=== PATIENT | female | born 1945 | race Caucasian/White ===

== ENCOUNTER 2017-04-27 10:58 | Outpatient (CLI) | payer BC | END 2017-04-27 10:59 | disposition home or self-care (01) | LOC: BICMAMMO 10:58 | PROVIDERS: ATTEND Obstetrics & Gynecology | DX: Z12.31 Encounter for screening mammogram for malignant neoplasm of breast (principal) | CPT/HCPCS: 77063; 77067 ==

== ENCOUNTER 2018-05-04 13:29 | Outpatient (CLI) | payer BC ==
--- NOTE | 2018-05-04 16:21 | MRI ---
MRI CERVICAL SPINE WITHOUT CONTRAST: INDICATIONS: A 73-year-old female with a history of cervical spinal surgery and neck pain with radiation to the [facility] shoulder, for many months. COMPARISON: None. TECHNIQUE: Multiplanar, multisequence MR images were obtained of the cervical spine without IV contrast. The ex amination was ordered as a with and without contrast examination; however, due to the patient's dimin ished GFR and elevated creatinine, no contrast enhanced images were obtained. FINDINGS: There is a subchondral cyst-like abnormality involving the odontoid process, with surrounding periodo ntoid mild low signal intensity T1 and T2 soft tissue prominence. There is a suspected small, bony h emangioma within the right lateral aspect of the T2 dens base. 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 There i s slight anterior translation of C3 on C4. There is slight anterior translation of C7 on T1, which i s likely degenerative. The remaining visualized posterior fossa is unremarkable appearing. At C2-C3, there is moderate facet joint degenerative change and uncovertebral hypertrophy but no appr eciable central canal or neural foraminal narrowing. At C3-C4, there is a broad-based disk osteophyte complex with uncovertebral hypertrophy and severe le ft and moderate right facet joint degenerative change, inducing mild to moderate left neural foramina l narrowing. At C4-C5, there is a broad-based disk osteophyte complex with uncovertebral hypertrophy and facet briseyda nt degenerative change but no appreciable central canal or neural foraminal narrowing. At C5-C6, there is a broad-based disk osteophyte complex causing mild effacement of the subarachnoid space, without definite cord contact. There is uncovertebral hypertrophy with facet joint degenerati ve change, inducing mild right neural foraminal narrowing. At C6-C7, there is no appreciable central canal or neural foraminal narrowing. At C7-T1, there is a broad-based disk osteophyte complex but no appreciable neural foraminal narrowin g. The disk bulge at this level induces mild effacement of the subarachnoid space, but no definite c ord contact. IMPRESSION: 1. Postoperative changes of the cervical spine, consistent with an interbody fusion at C6-C7. 2. 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 3. There is mild central canal narrowing seen at C5-C6 and C7-T1 without definite cord compression. 4. There is mild to moderate left-sided neural foraminal narrowing seen at C3-C4. 5. Subchondral cyst-like abnormalities with surrounding low signal intensity soft tissue prominence of the odontoid process can be seen with entities such as osteoarthrosis of the atlantoaxial joint; h owever, this can also be seen with entities such as calcium pyrophosphate deposition disease. Correl ation with a CT of the cervical spine may be helpful to evaluate for periarticular soft tissue calcif ications. 6. Bony hemangioma within the base of C2. POS: [facility]
== END 2018-05-04 13:30 | disposition home or self-care (01) ==
LOC: SCSMRI 13:29
PROVIDERS: ATTEND Orthopaedic Surgery
DX: M47.812 Spondylosis without myelopathy or radiculopathy, cervical region (principal); M48.02 Spinal stenosis, cervical region; D18.09 Hemangioma of other sites; Z98.890 Other specified postprocedural states; Z98.1 Arthrodesis status
CPT/HCPCS: 72141; 82565

== ENCOUNTER 2018-09-05 13:33 | Outpatient (CLI) | payer BC ==
--- NOTE | 2018-09-05 14:57 | MMO ---
Bilateral MAMMO Bilat Screen [facility]. CLINICAL HISTORY: Patient is 73 years old and is seen for screening. The patient has no family history of breast cancer. The patient has no personal history of cancer. VIEWS: The views performed were: bilateral craniocaudal with tomosynthesis and bilateral mediolateral oblique with tomosynthesis. FILMS COMPARED: The present examination has been compared to prior imaging studies performed at [facility] on 03/26/2014, 04/02/2015, 04/07/2016 and 04/27/2017. MAMMOGRAM FINDINGS: There are scattered fibroglandular densities. There are benign appearing and vascular calcifications seen in both breasts. There are no suspicious masses, suspicious calcifications, or new areas of architectural distortion. IMPRESSION: THERE IS NO MAMMOGRAPHIC EVIDENCE OF MALIGNANCY. A ROUTINE FOLLOW-UP MAMMOGRAM IN 1 YEAR IS RECOMMENDED. THE RESULTS OF THIS EXAM WERE SENT TO THE PATIENT. ACR BI-RADS Category 2 - Benign finding MAMMOGRAPHY NOTE: 1. A negative mammogram report should not delay a biopsy if a dominant of clinically suspicious mass is present. 2. Approximately 10% to 15% of breast cancers are not detected by mammography. 3. Adenosis and dense breasts may obscure an underlying neoplasm. Reported by: ROBY GRIJALVA MD Electonically Signed: [id number]
== END 2018-09-05 13:34 | disposition home or self-care (01) ==
LOC: BICMAMMO 13:33
PROVIDERS: ATTEND Obstetrics & Gynecology
DX: Z12.31 Encounter for screening mammogram for malignant neoplasm of breast (principal)
CPT/HCPCS: 77063; 77067

== ENCOUNTER 2020-10-18 10:56 | Outpatient (CLI) | payer BC | END 2020-10-18 10:57 | disposition home or self-care (01) | LOC: BICMAMMO 10:56 | PROVIDERS: ATTEND Internal Medicine | DX: Z12.31 Encounter for screening mammogram for malignant neoplasm of breast (principal) | CPT/HCPCS: 77063; 77067 ==

== ENCOUNTER 2021-11-04 11:50 | Outpatient (CLI) | payer BC | END 2021-11-04 11:51 | disposition home or self-care (01) | LOC: BICMAMMO 11:50 | PROVIDERS: ATTEND Internal Medicine | DX: Z12.31 Encounter for screening mammogram for malignant neoplasm of breast (principal) | CPT/HCPCS: 77063; 77067 ==

== ENCOUNTER 2023-11-19 13:30 | Outpatient (CLI) | payer MEDICARE | END 2023-11-19 13:31 | disposition home or self-care (01) | LOC: BICMAMMO 13:30 | PROVIDERS: ATTEND Internal Medicine | DX: Z12.31 Encounter for screening mammogram for malignant neoplasm of breast (principal) | CPT/HCPCS: 77063; 77067 ==

== ENCOUNTER 2024-01-24 19:36 | Emergency (ER) | payer MEDICARE ==
[2024-01-24 20:48] LABS: #Basophils 0.03 10x3/uL (0.0-0.2); %Basophils 0.3 % (0.0-1.0); %Eosinophils 1.7 % (0.0-10.0); %Lymphocytes 21.5 % (21.0-51.0); %Monocytes 7.5 % (0.0-10.0); %Neutrophils 68.7 % (42.0-75.0); Hematocrit 35.7 % (36.0-47.0); Hemoglobin 11.8 g/dL (12.0-16.0); Mean Corpuscular HGB CONC 33.1 g/dL (32.0-36.0); Mean Corpuscular Hemoglobin 31.4 pg (27.0-31.0); Mean Corpuscular Volume 94.9 fL (78.0-98.0); Mean Platelet Volume 9.4 fL (7.4-10.4); Platelet Count 339 10x3/uL (130-400); RBC Distribution Width 12.7 % (11.5-14.5); Red Blood Cell (RBC) Count 3.76 mill/uL (4.20-5.40)
[2024-01-24 21:08] LABS: ALT (SGPT) 17 U/L (8-55); AST (SGOT) 24 U/L (5-34); Albumin 3.8 g/dL (3.4-4.8); Alkaline Phosphatase 94 U/L (40-110); Anion Gap 13 mmol/L (10-20); BUN (Urea Nitrogen) 28 mg/dL (9.8-20.1); Bilirubin, Total 0.3 mg/dL (0.2-1.2); Calc. Creatinine Clearance 0 mL/min (70-130); Calcium 9.2 mg/dL (7.8-10.44); Carbon Dioxide 20 mmol/L (23-31); Chloride 109 mmol/L (98-107); Estimated GFR 44; Globulin 3.1 g/dL (2.4-3.5); Glucose 102 mg/dL (83-110); Magnesium 2.2 mg/dL (1.6-2.6); Potassium 3.8 mmol/L (3.5-5.1); Protein, Total 6.9 g/dL (5.8-8.1); Sodium 138 mmol/L (136-145)
[2024-01-24 21:23] LABS: Troponin I Less than 0.010 ng/mL (< 0.028)
[2024-01-24] MEDS ORDERED: Meclizine HCl 25 MG TAB ONE (21:25)
[2024-01-24 21:45] LABS: Bacteria/HPF None Seen HPF (None Seen); Bilirubin Negative (Negative); Blood, Urine Negative (Negative); CAUTI Indications for Culture Acute Hematuria; Clarity Clear (Clear); Glucose, Urine (Dipstick) Greater than 1000 mg/dL (Negative); Ketone, Urine Negative (Negative); Leukocyte Negative Leu/uL (Negative); Nitrite Negative (Negative); Protein, Urine (Dipstick) Negative (Neg-Trace); RBC/HPF 0-3 HPF (0-3); Specific Gravity, Urine 1.005 (1.002-1.036); Squamous Epithelial None Seen HPF (0-3); Urobilinogen Normal mg/dL (Less than 2); WBC/HPF 0-3 HPF (0-3)
[2024-01-24 21:47] LABS: Urine Culture Reflex No No
== END 2024-01-24 23:48 | disposition home or self-care (01) ==
LOC: ERS 19:36
DX: R42 Dizziness and giddiness (principal); E11.9 Type 2 diabetes mellitus without complications
CPT/HCPCS: 36415; 70450; 80053; 81001; 83735; 83880; 84443; 84484; 85025; 93005

== ENCOUNTER 2024-09-27 12:26 | Outpatient (CLI) | payer MEDICARE | END 2024-09-27 12:27 | disposition home or self-care (01) | LOC: SCSMRI 12:26 | PROVIDERS: ATTEND Specialist | DX: M47.22 Other spondylosis with radiculopathy, cervical region (principal); M50.11 Cervical disc disorder with radiculopathy, high cervical region; M50.121 Cervical disc disorder at C4-C5 level with radiculopathy; M50.122 Cervical disc disorder at C5-C6 level with radiculopathy; M50.13 Cervical disc disorder with radiculopathy, cervicothoracic region; M43.22 Fusion of spine, cervical region; M48.02 Spinal stenosis, cervical region; Z98.1 Arthrodesis status; Z98.890 Other specified postprocedural states | CPT/HCPCS: 72141 ==

== ENCOUNTER 2024-11-20 11:10 | Outpatient (CLI) | payer MEDICARE | END 2024-11-20 11:11 | disposition home or self-care (01) | LOC: BICMAMMO 11:10 | PROVIDERS: ATTEND Internal Medicine | DX: Z12.31 Encounter for screening mammogram for malignant neoplasm of breast (principal); M81.0 Age-related osteoporosis without current pathological fracture | CPT/HCPCS: 77063; 77067; 77080 ==

== ENCOUNTER 2025-02-06 07:29 | Outpatient (CLI) | payer MEDICARE ==
[2025-02-06] MEDS ORDERED: Sincalide 5 MCG VIAL ONE (08:43)
== END 2025-02-06 07:30 | disposition home or self-care (01) ==
LOC: NM 07:29
PROVIDERS: ATTEND Internal Medicine
DX: R10.9 Unspecified abdominal pain (principal)
CPT/HCPCS: 78227; A9537; J2805